=== PATIENT | female | born 1985 | race Caucasian/White ===

== ENCOUNTER → 2017-10-27 | Outpatient (CLI) | payer OTHER ==
[~2017-10-27] MED LIST: CODE-54 PO; FRS325T PO; IBP600T1 PO; PNV1TABL67 PO
--- NOTE | 2017-10-28 20:00 | Physician Query-Final Dx ---
ANILA MIRANDA 10/28/17 8:00pm: Clinic Account Progress/Dx Physician Query: Please give diagnosis Date of Service Oct 27, 2017 at 11:42 LOW MADRIGAL DO 11/18/17 10:25am: Clinic Account Progress/Dx DIAGNOSIS: Diagnosis miscarriage MIRANDA,ANILA [place] Oct 28, 2017 8:00 pm LOW MADRIGAL DO Nov 18, 2017 10:25 am
== END ==
LOC: WSo 11:42
PROVIDERS: ATTEND Obstetrics & Gynecology
DX: O03.9 Complete or unspecified spontaneous abortion without complication (principal)
CPT/HCPCS: 36415; 84702